=== PATIENT | male | born 1975 | race Caucasian/White ===

== ENCOUNTER → 2016-11-21 | Outpatient (CLI) | payer OTHER ==
--- NOTE | 2016-11-21 08:53 | FL ---
EXAMINATION TYPE: FL barium swallow DATE OF EXAM: 11/21/2016 CLINICAL HISTORY: Intermittent dysphagia TECHNIQUE: A double contrast esophagram is performed utilizing air, thick barium, and thin barium. A total of 1 minute and 37 seconds of fluoroscopy time was utilized during the procedure. COMPARISON: None FINDINGS: The esophagus shows normal motility and emptying into the stomach. The patient noted no dif ficulty swallowing during the examination. No evidence of hiatal hernia or stricture noted. A minute amount of gastroesophageal reflux was seen during real time performance of this study utilizing the Valsalva maneuver and a gravity independent position, just above the gastroesophageal junction. IMPRESSION: Minimal gastroesophageal reflux during the Valsalva maneuver in a gravity independent position. Othe rwise, unremarkable exam.
== END ==
LOC: RADFLMAIN 07:55
DX: K21.9 Gastro-esophageal reflux disease without esophagitis (principal)
CPT/HCPCS: 74220